=== PATIENT | male | born 1955 | race Caucasian/White ===

== ENCOUNTER 2021-01-11 22:42 | Inpatient (IN) | payer MEDICARE ==
[~2021-01-11] VITALS: Ht 182.9 cm; Wt 95.0 kg
[2021-01-11 22:51] LABS: PCO2 Arterial 97.8 mmHg (35-45); PO2 Arterial 247 mmHg (80-100); pH Blood Arterial 7.25 (7.35-7.45)
[2021-01-11 23:00] LABS: BASOPHILS ABSOLUTE AUTO 0.04 K/mm3 (0.00-0.23); BASOPHILS PERCENT AUTO 0 % (0-2); EOSINOPHILS ABSOLUTE AUTO 0.01 K/mm3 (0.00-0.68); EOSINOPHILS PERCENT AUTO 0 % (0-6); Hematocrit 45.1 % (37.0-53.0); Hemoglobin 12.8 g/dL (13.5-17.5); IMMATURE GRAN ABSOLUTE AUTO 0.19 K/mm3 (0.00-0.10); IMMATURE GRAN PERCENT AUTO 1 % (0-1); LYMPHOCYTES PERCENT AUTO 3 % (21-46); MONOCYTES ABSOLUTE AUTO 0.57 K/mm3 (0.16-1.47); MONOCYTES PERCENT AUTO 3 % (4-13); Mean Corpuscular HGB 29.4 pg (26.0-34.0); Mean Corpuscular HGB Conc 28.4 g/dL (31.5-36.5); Mean Corpuscular Volume 103 fL (80-100); Mean Platelet Volume 10.5 fL (9.1-12.4); NEUTROPHILS PERCENT AUTO 93 % (41-73); Platelet Count 245 K/mm3 (150-400); RDW Coefficient Variation 12.5 % (11.7-14.2); RDW Standard Deviation 48.2 fL (35.1-46.3); Red Blood Cell Count 4.36 M/mm3 (4.30-5.90); White Blood Cell Count 18.71 K/mm3 (4.00-11.30)
[2021-01-11] MEDS ORDERED: Ventolin/Prove6.7 GM INH (23:14)
[2021-01-11] MEDS ORDERED: GABA300 PO ×2 (23:15→23:16)
[2021-01-11] MEDS ORDERED: LEVETIRACETAM1000 M1 PO (23:16)
[2021-01-11] MEDS ORDERED: METF500 PO (23:17)
[2021-01-11] MEDS ORDERED: CARV3.125 PO (23:18)
[2021-01-11] MEDS ORDERED: CLOP75 PO (23:18)
[2021-01-11] MEDS ORDERED: ATOR80 PO (23:18)
[2021-01-11] MEDS ORDERED: BUPR150ER PO (23:18)
[2021-01-11] MEDS ORDERED: DULO60 PO (23:20)
[2021-01-11 23:35] LABS: Albumin, Blood 1.8 g/dL (3.4-5.0); Albumin/Globulin Ratio 0.3 (0.8-1.8); Bilirubin, Total 0.3 mg/dL (0.1-1.0); Bun/Creatinine Ratio 27.6 (12.0-20.0); Calcium, Blood 9.6 mg/dL (8.5-10.1); Creatinine, Blood 1.56 mg/dL (0.60-1.20); Globulin, Blood 5.6 g/dL (2.2-4.0); Potassium, Blood 5.8 mmol/L (3.5-5.5); Total Protein, Blood 7.4 g/dL (6.4-8.2); Troponin I 0.059 ng/mL (0.000-0.040)
[2021-01-12 02:32] LABS: Source, Urine Catheter
[2021-01-12 02:36] LABS: Bilirubin, Urine Neg (Neg); Blood, Urine 3+ (Neg); Glucose Qualitative, Urine 4+ (Neg); Ketones, Urine Neg (Neg); Leukocyte Esterase, Urine Neg (Neg); Nitrite, Urine Neg (Neg); Protein, Urine 3+ (Neg); Urobilinogen, Urine NORM (Normal)
--- NOTE | 2021-01-12 02:41 | NUR ---
ASSUMED CARE NOTE: ASSUMED CARE OF PT AT 1900, RECEVIED REPORT FROM GUILLERMINA MARTE. PT IS ALERT AND ORIENTED TO SELF, FOLLOWING COMMANDS. PT IS UNABLE TO RECALL RECENT/REMOTE EVENTS. PT IS CONFUSED, UNABLE TO RESPOND QUESTIONS APPROPRIATLY. BECOMES ANXIOUS AND AGITATED WHEN ASKED QUESTIONS AND STS " WHY ARE YOU TRYING TO CONFUSE ME" UNABLE TO OBTAIN MEDICAL/MEDICATION HISTORY. WILL ATTEMPT TO REACH CAREGIVER BRIJESH TO OBTAIN MED REC/ Hx FROM HER. PT IS ON BIPAP WITH SETTINGS AT 14/8, FiO2 30% SPO2 AT 97% PT IS IN SINUS TACH WITH HR IN THE 120'S. PT STS "NO" TO PAIN. PT C/O NOT BEING ABLE TO URINATE. BLADDER SCAN READ 565ML, 16F WILSON PLACED, UA SENT TO LAB. WILL CONTINUE TO MONITOR PT
[2021-01-12 02:43] LABS: Appearance, Urine Hazy (Clear); Color, Urine Yellow (P-Yellow)
[2021-01-12 02:44] LABS: Bacteria Rare /hpf; Red Blood Cells, Urine 0-2 /hpf (0-2); Squamous Epithelial Cells Few /hpf (Few); White Blood Cells, Urine Rare /hpf (0-5)
[2021-01-12 02:45] LABS: Amorphous Heavy (0-Heavy)
--- NOTE | 2021-01-12 03:01 | NUR ---
PT BECOMING VERY AGITATED, UNABLE TO UNDERSTAND DIRECTIONS. PT ATTEMPTING TO THROW CALL LIGHT AROUND. PT STS " I KNOW WHAT YOU ARE TRYING TO DO, KILL ME, I WANT TO WALK OUT" CALLED , ORDERS FOR HALDOL GIVEN
--- NOTE | 2021-01-12 03:42 | NUR ---
PT IS MORE CONFUSED, TAKING OFF BIPAP MASK, ATTEMPTING TO GET OUT OF BED. CALLED MAYA, PT ON PRECEDEX, BILAT SWR IN PLACE.
[2021-01-12 05:43] LABS: PCO2 Arterial 62.8 mmHg (35-45); PO2 Arterial 87.3 mmHg (80-100); pH Blood Arterial 7.43 (7.35-7.45)
--- NOTE | 2021-01-12 06:17 | NUR ---
SHIFT SUMMARY: SEE PREVIOUS NOTES. PT CONTINUES TO BE CONFUSED/AGITATED, BECOMES DEFENSIVE WHEN ASK QUESTIONS REGARDING ORIENTATION. REFUSES TO PARTICIPATE IN NEURO ASSESSMENT. PT IS ON PRECEDEX AT 0.7MCG/KG/HR. PT IN SINUS TACH WITH HR IN THE 100-120'S, SBP 150'S. PT IS ON BIPAP WITH SETTINGS AT 14/8, FiO2 AT 30%, SPO2 ABOVE 90% PT RR FROM 20-40 BPM, MODERATE WORK OF BREATHING NOTED. RESTRAINTS APPLIED DUE TO PT CONTINUING TO TAKE OFF BIPAP MASK. PT REACHING FOR LINES/TUBES, ATTEMPTING TO GET OUT OF BED. PT WILL OPEN MOUTH WIDE ENOUGH TO REMOVE MASK, NEEDS TO BE REDIRECTED OFTEN. WILSON DRAINING TO GRAVITY, BED AT LOWEST LEVEL. WILL CONTINUE TO MONITOR PT UNTIL REPORT IS GIVEN TO ONCOMING SHIFT.
[2021-01-12 07:05] LABS: BASOPHILS ABSOLUTE AUTO 0.01 K/mm3 (0.00-0.23); BASOPHILS PERCENT AUTO 0 % (0-2); EOSINOPHILS PERCENT AUTO 0 % (0-6); Hematocrit 37.8 % (37.0-53.0); Hemoglobin 11.2 g/dL (13.5-17.5); IMMATURE GRAN ABSOLUTE AUTO 0.12 K/mm3 (0.00-0.10); IMMATURE GRAN PERCENT AUTO 1 % (0-1); LYMPHOCYTES ABSOLUTE AUTO 0.53 K/mm3 (0.84-5.20); LYMPHOCYTES PERCENT AUTO 4 % (21-46); MONOCYTES ABSOLUTE AUTO 0.17 K/mm3 (0.16-1.47); MONOCYTES PERCENT AUTO 1 % (4-13); Mean Corpuscular HGB 29.3 pg (26.0-34.0); Mean Corpuscular HGB Conc 29.6 g/dL (31.5-36.5); Mean Corpuscular Volume 99 fL (80-100); Mean Platelet Volume 10.2 fL (9.1-12.4); NEUTROPHILS PERCENT AUTO 95 % (41-73); Platelet Count 229 K/mm3 (150-400); RDW Coefficient Variation 12.4 % (11.7-14.2); RDW Standard Deviation 45.4 fL (35.1-46.3); Red Blood Cell Count 3.82 M/mm3 (4.30-5.90); White Blood Cell Count 15.23 K/mm3 (4.00-11.30)
[2021-01-12 07:32] LABS: Albumin/Globulin Ratio 0.4 (0.8-1.8); Bilirubin, Total 0.3 mg/dL (0.1-1.0); Bun/Creatinine Ratio 30.9 (12.0-20.0); Calcium, Blood 9.5 mg/dL (8.5-10.1); Creatinine, Blood 1.49 mg/dL (0.60-1.20); Globulin, Blood 4.6 g/dL (2.2-4.0); Potassium, Blood 4.5 mmol/L (3.5-5.5); Total Protein, Blood 6.6 g/dL (6.4-8.2); Troponin I 0.085 ng/mL (0.000-0.040)
--- NOTE | 2021-01-12 09:24 | NUR ---
Echocardiogram using 0.60ml of Definity contrast performed by Eve Shafer under my supervision.
--- NOTE | 2021-01-12 09:45 | NUR ---
PT HAS BEEN AGITATED THIS AM. GOES FROM CALM TO AGITATED QUICKLY. ON PRECEDEX 0.7MCG/KG/MIN. HAD TO PLACE IN 4 POINT RESTRAINTS THIS AM. HE WILL KICK AT STAFF AND DIFFICULT TO REDIRECT. ORIENTED TO SELF AND HOSPITAL. PT WILL RIP BIPAP MASK OFF DESPITE BEING IN SOFT WRIST RESTRAINTS. PT'S NOSE AND MOUTH TURN PURPLE QUICKLY. CALLED DR. DRUMMOND TO LET HIM KNOW TROPONIN WENT UP, HELD PO MEDS DUE TO RESP DISTRESS, AGITATION LEVEL, BNP 753 AND NOT SURE IF HE RECEIVED LASIX. HE IS GOING TO REVIEW THE CHART. OK'D TO GO UP TO 1.4MCG/KG/MIN OF PRECEDEX.
--- NOTE | 2021-01-12 10:30 | NUR ---
PT CONTINUES TO RIP BIPAP MASK OFF, EVEN WITH PRECEDEX AT 1.4MCG/KG/MIN AND SOFT WRIST RESTRAINTS. HAD CONVERSATION WITH PT ABOUT HIS WISHES FOR INTUBATION AND CPR. PT STATES HE DOES NOT WANT ANY OF THAT. HIS HYDRAULIC REPAIRER ANASTACIA CHEUNG CALLED AND STATES THAT HE HAS BEEN HAVING DIFFICULTY GETTING O2 AND INHALERS AT HOME. 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 THEY HAD BEEN DISCUSSING HOSPICE CARE AT THE END OF DECEMBER. GOT PALLIATIVE CARE CONSULT AND LEFT MESSAGE FOR [employer] THAT IS ON HIS CASE. CALLED DR. DRUMMOND AND LET HIM KNOW ALL OF THIS. DR. DRUMMOND WANTS TO KEEP TREATING HIM FOR HIS PNA AND DISCUSS HOSPICE LATER. PALLIATIVE CARE RN IS GOING TO REACH NEXT OF KIN. WILL TRY HALDOL IN CONJUNCTION WITH PRECEDEX.
--- NOTE | 2021-01-12 11:54 | NUR ---
Next of Kin Brother Dom [phone] Proxy Medical decision maker Sister Maria E [phone] Both supportive of pt's stated wishes for DNR Urgent referral received from ICU r/t pt's altered respiratory and mental status, as well as assistance with locating medical desion-makers. Pt is currently on bipap and is not tolerating it well, and continues to indicate he wants the bipap mask removed. However, it's likely pt's status would quickly worsen, likely resulting in either intubation or . Pt has continued to indicate he does not want to be intubated. I was able to track down pt's brother Dom and sisters Maria E and Karma Esocto, as well as speak to all 3 of them. Dom lives locally, as a roommate to pt. Maria E and Karma live in [place]. They are all in agreement with honoring pt's wishes of DNR and no intubation. Received V.O. from Dr. Whalen to change pt's code status to DNR. Per pt's family members, pt has been in discussion with PCP about moving to hospice care, as he has severe COPD and is unable to obtain relief from air hunger. He is using his inhalers so frequently when filled that he runs out at least 2 weeks before next fill is due. His oxygen concentrator is not working properly, and his brother states he owes so much money to [facility], they will no longer assist pt with oxygen at this time. Pt's sisters have decided that one of them will be driving to [place] to see pt, and they are aware of his current prognosis. Dr. Whalen states he will be rounding on the patient shortly, and states he has increased precedex, and will decide after seeing pt if other medications would be appropriate. He does not wish to discuss hospice at this time, as his goal is to focus on the pneumonia, and we can look into advanced care planning once pt's overall prognosis becomes clearer with treatment.
[2021-01-12 15:49] LABS: Troponin I 0.079 ng/mL (0.000-0.040)
--- NOTE | 2021-01-12 19:16 | NUR ---
SUMMARY PT WAS ON BIPAP ALL DAY UNTIL 1800. WAS ABLE TO TAKE A BREAK ON 6L HFNC. ABLE TO SPEAK SHORT ONE WORD RESPONSES AND STATES HE WILL TRY TO BE CALM. HAS BEEN ON PRECEDEX 1.4MCG/KG/MIN TO KEEP CALM ENOUGH FOR BIPAP. THIS AM HE COULD NOT TOLERATE BEING OFF BIPAP FOR EVEN A COUPLE MINUTES BEFORE HIS NOSE AND MOUTH TURNED PURPLE. THIS EVENING HE WAS ABLE TO TAKE A BREAK WITHOUT NOSE OR LIPS TURNING PURPLE. PT HAS EXPRESSED THAT HE DOES NOT WANT TO BE INTUBATED OR HAVE CPR SEVERAL TIMES TODAY. HE HAS ALSO STATED THAT HE DOES NOT WANT TO STRUGGLE OR BE IN ANY PAIN. ELECTRICAL ESTIMATOR CALLED TODAY AND SAID THAT PT HAS BEEN THINKING ABOUT GOING ON HOSPICE. NOTIFIED DR. DRUMMOND WHO CAME IN TO SEE PT A COUPLE TIMES TODAY. FOR NOW WE ARE TREATING HIS PNA AND WILL ADDRESS HOSPICE LATER. PT IS ORIENTED TO SELF AND HOSPITAL. SOMETIMES CONVERSATION DOES NOT MAKE SENSE THEN OTHER TIMES PT IS LUCCID. KEPT PT IN RESTRAINTS TODAY D/T HIM PULLING AT ALL LINES. BROTHER CAME IN TO SEE HIM TODAY AND WAS UPDATED. A SISTER FROM [place] WILL BE HERE TOMORROW. REPORT GIVEN TO TIERA MARTE.
--- NOTE | 2021-01-12 21:09 | NUR ---
SHIFT ASSESSMENT ASSUMED CARE OF PT @ 1900, REPORT RECEIVED FROM ROSANNA ROBINS. ALERT TO PERSON AND PLACE, CONFUSED WITH OTHER QUESTIONING. PRECEDEX GTT @ 1.4MCG/KG. UPON INITIAL INTRODUCTION PT WAS ON 6LPM O2 VIA NC c SATS >90% BUT RR WAS 30+ WITH OPEN MOUTH BREATHING. PT SPEAKING IN SHORT SENTENCES, BUT BECOMES DYSPNEIC RATHER QUICKLY, PLACED BACK ON BIPAP @ 14/12-35% c SATS AROUND 90% PER PT REQUEST. PT VERY ANXIOUS AND UNCOMFORTABLE, BECOMING AGITATED. SPOKE WITH MICHELLE, ORDERS FOR DIFFERENT PRN MEDS PLACED AND GIVEN. PT RESPONDED WELL TO ATIVAN AND MORPHINE, MUCH CALMER NOW, TOLERATING BIPAP WELL c O2 SAT AROUND 92-93% c RR OF 25. WILL CONTINUE TO MONITOR.
--- NOTE | 2021-01-12 21:45 | NUR ---
REPORT GIVEN TO ROSANNA HIGGINS TO ASSUME CARE OF PT.
[2021-01-13 03:49] LABS: Bun/Creatinine Ratio 31.7 (12.0-20.0); Calcium, Blood 9.2 mg/dL (8.5-10.1); Creatinine, Blood 1.83 mg/dL (0.60-1.20); Potassium, Blood 4.7 mmol/L (3.5-5.5)
--- NOTE | 2021-01-13 04:06 | NUR ---
UPDATE: PT IS AWAKE, TAKING BIPAP MASK OFF. STS " I AM VERY CONFUSED, WHERE IS MEJIA?" PT IS MOVING AROUND IN BED, RR IN THE HIGH 30'S. PRECEDEX TITRATED.
--- NOTE | 2021-01-13 06:06 | NUR ---
SHIFT SUMMARY: SEE PREVIOUS NOTES. PT CONTINUES TO BE ON PRECEDEX AT 1MCG/KG/HR. PT WAS GIVEN MORPHINE AND ATIVAN EARLY IN THE SHIFT, PT BP SOFT, HOWEVER MAP MAINTAINED ABOVE 65. PREXCEDEX TITRATED DOWN TO 0.2MCG/KG/HR DURINING SHIFT, HOWEVER PT AWAKEND AGITATED AND CONTINUED TO TAKE OFF BIPAP MASK AND PULL ON IV LINES AND CORDS. PT IN BILAT SWR. WILSON PATNET DRAINING TO GRAVITY.
--- NOTE | 2021-01-13 06:36 | NUR ---
PT HAS HAD A COUPLE RUN OF VTACH, LAST ONE WAS THE LONGEST. 0631, APPROX 18 BEATS, SEE CHART OF RYTHYM STRIP. PT IS NOW IN NSR WITH HR IN THE 60'S.
--- NOTE | 2021-01-13 11:11 | NUR ---
AM NOTE... ASSUMED CARE OF PT AT 0715. PT IS A&Ox4 AT THIS TIME, TELLING THIS RN HE IS IN [place], HIS NAME AND THE YEAR. PT IS ON BIPAP AT 14/8 AND 35% WITH O2 SATS >90%. PT IS IN SR TO SINUS TACH 70'S-100'S. BP HAS BEEN STABLE. L/S COARSE T/O DIM IN THE BASES, PT WAS ABLE TO TOLERATE BEING OFF THE BIPAP ON 6L NC FOR APROX 10 MINS FOR ORAL CARE. PT WAS ABLE TO SAFELY DRINK SOME WATER. PT WAS COMPLIANT WITH CARE AND KEEPING THE BIPAP MASK ON SO HIS RESTRAINTS WERE REMOVED AT 0800. WILSON IS PATENT AND DRAINING CLEAR YELLOW URINE TO GRAVITY. BT PRESENT AND HYPOACTIVE ABD IS SOFT AND NONTENDER TO PALP. PRECEDEX WAS AT 0.8MCG/KG/HR, THIS WAS TITRATED DOWN TO 0.6MCG/KG/HR. CALL LIGHT IN REACH, BED ALARM IS ON WILL CONTINUE TO MONITOR.
--- NOTE | 2021-01-13 18:23 | NUR ---
SHIFT SUMMARY.... NO ACUTE NEGATIVE CHANGES NOTED THIS SHIFT. PT CONTINUES TO BE A&Ox4, PRECEDEX HAS BEEN TITRATED OFF AT THIS TIME. PT CONTINUES TO BE CALM AND COOPERATIVE AND TOLERATING THE BIPAP AT THIS TIME. BIPAP SETTINGS ARE CURRENTLY 14/8 AND 40% WITH O2 SATS >90%. PT CONTINUES TO BE IN SR/ST W/BBB AND OCC PVCs. PT'S SISTER WAS AT THE BEDSIDE FOR VISITING HOURS. PT HAS BEEN ABLE TO TOLERATE SMALL SIPS OF WATER DURING ORAL CARE BREAKS OFF THE BIPAP. PT'S WILSON IS PATENT AND DRAINING CLEAR YELLOW URINE TO GRAVITY. PT DID NOT HAVE A BM THIS SHIFT. CALL LIGHT IN REACH WILL CONTINUE TO MONITOR UNTIL REPORT IS GIVEN TO ONCOMING RN.
--- NOTE | 2021-01-13 22:21 | NUR ---
ASSUMED CARE AT 1900 PT LAYING IN BED WITH BIPAP SETTINGS 14/8, FIO2 40%; PT TRIALLED OFF OF BIPAP TO NC 7L, TITRATION UP TO 10L HIGH FLOW NC AND SPO2 >90%; DURING EXERTION OF PT REPOSITIONING IN BED, SPO2 DECLINES AND BIPAP PLACED BACK ON PT WITH SETTINGS 16/8, FIO2 60%, TITATED NOW TO FIO2 45%. PT WAS ABLE TO TOLERATE BEING OFF OF BIPAP FOR 20MIN. PT IS ALERT/ORIENTED TO LOCATION AND SITUATION BUT NOT MONTH OR YEAR, IS ABLE TO MAKE HIS NEEDS KNOWN, AND IS CALM AND COOPERATIVE WITH CARE. HR 80-105. SBP 130-150. AFIBRILE. PT ABLE TO TOLERATE SIPS OF WATER AND TAKING PO MEDS WITHOUT SIGNS OF ASPIRATION. WILSON PATENT AND DRAINING TO GRAVITY. SEE SHIFT ASSESSMENT FOR FULL ASSESSMENT.
[2021-01-14 05:16] LABS: Anion Gap 4 mmol/L (6-16); Blood Urea Nitrogen 64 mg/dL (8-24); Bun/Creatinine Ratio 33.9 (12.0-20.0); CO2, Blood 38 mmol/L (21-32); Chloride, Blood 97 mmol/L (98-108); Creatinine, Blood 1.89 mg/dL (0.60-1.20); Glomerular Filtration Rate 38 (60-); Glucose, Blood 158 mg/dL (70-99); Potassium, Blood 4.8 mmol/L (3.5-5.5); Sodium, Blood 139 mmol/L (136-145)
[2021-01-14 05:20] LABS: Vancomycin, Trough 41.5 ug/mL (5.0-10.0)
--- NOTE | 2021-01-14 05:24 | NUR ---
UPDATE PRECEDEX GTT STARTED AGAIN AT 0.2MCG/KG/HR DUE TO INCREASE IN ANXIOUSNESS, PT STATING THAT HE CANNOT TAKE A FULL BREATH, SPO2 >90% AND BIPAP NOT ALARMING. PRN HALDOL GIVEN EARLIER AND PT CONT TO BE UNEASY AND NOW STATING THAT HE IS "DYING" AND IS FIDGETING WITH BIPAP MASK. WILL CONT TO MONITOR.
--- NOTE | 2021-01-14 07:09 | NUR ---
END OF SHIFT SUMMARY PT IS ALERT/ORIENTED AND ABLE TO MAKE HIS NEEDS KNOWN, AN INCREASE IN RESTLESSNESS AND ANXIETY OCCURED T/O SHIFT, SEE PREVIOUS NURSE NOTE, PRECEDEX INFUSING AT 0.4MCG/KG/HR NOW. BIPAP SETTINGS AT 14/8, FIO2 45%, PT ABLE TO TOLERATE SMALL BREAKS FOR SIPS OF WATER AND ORAL CARE BEFORE SPO2 DECLINES TO LOW 80'S. AFIBRILE. HR 80-115. SBP 125-150. WILSON IN PLACE AND DRAINING TO GRAVITY. PT TOLERATES SIPS OF WATER WELL WITHOUT SIGNS OF ASPIRATION. REPORT GIVEN TO AM RN.
--- NOTE | 2021-01-14 07:28 | NUR ---
PT AWAKENS TO VOICE AND IS A&O X4. APPEARS VERY WITHDRAWN AND AFFECT FLAT. PT REFUSING AM CARE AT THIS TIME AND JUST "WANTS TO SLEEP." CONTINUES ON INSULIN DRIP @ 1 UNIT/HR-WITH HOURLY CBG. WILL ADDRESS BEGINING PT HOME REGIME WHEN [facility] MD COMES TO EVALUATE PT.
--- NOTE | 2021-01-14 08:00 | NUR ---
PT A&0X4. NO NOTED ANXIETY WITH PRECEDEX @ 0.4 MCG/KG/MIN.DENIES PAIN AT THIS TIME. PT PLACED ON 9 LITERS HIGH FLOW 02 AND OOB TO CHAIR USING CEILING LIFT AFTER SUBSTANCE ABUSE TECHNICIAN'S DID AM CARE AND BATHED PT. PT TOLERATED VERY WELL. ECG CONTINUES ST WITH BBB AND PVC'S. LUNGS DIMINISHED AND TIGHT THROUGH OUT. PT UTILIZES PURSED LIP BREATHING. OCCASIONAL, MOIST, NONPRODUCTIVE COUGH. PT AWARE THAT SPUTUM SPECIMEN NEEDED AND SPECIMEN CUP SET WITIN PT REACH. PT ABLE TO SWALLOW ROUTINE AM MEDS WITH SIPS OF WATER WITHOUT SIGNS OF ASPIRATION. TOLERATING CLEAR LIQUID DIET WELL. ORAL MUCOSA AND LIPS VERY DRY. PT ABLE TO BRUSH HIS OWN TEETH WHEN PROVIDED WITH THE SUPPLIES-ALSO, APPLIED CHAPSTICK TO LIPS. WILSON TO BSD WITH SMALL AMOUNT OF YELLOW URINE WITH SEDIMENT NOTED. WILL ENCOURAGE COUGHING AND DEEP BREATHING AND OOB TO CHAIR TOLERATED.
--- NOTE | 2021-01-14 10:00 | NUR ---
FOUND PT OUT OF CHAIR. HE DID NOT CALL FOR ASSISTANCE GETTING OUT OF THE RECLINER. PT CONFUSED AND AGITATED. DIFFICULT TO RE-DIRECT AND GET PT BACK TO CHAIR. WITH LOTS OF ENCOUGAGEMENT, PT ASSISTED BACK TO THE CHAIR, THEN USED CEILING LIFT TO GET PT BACK TO BED. TITRATED PRECEDEX UP TO 0.7 MCG/KG/MIN IN ORDER FOR PT TO TOLERATE BIPAP. PT REPORTS GENERALIZED PAIN AND SOB-MED WITH MORPHINE SULFATE 4 MG IVP X 1 SEE EMAR. PT POSITONED TO COMFORT ON LEFT SIDE WITH HOB 30% . MAINTAINS SATS>90% ON FIO2 45%
--- NOTE | 2021-01-14 17:45 | NUR ---
P HAS BEEN SITTING UP IN THE CHAIR FOR SEVERAL HOURS THIS EVENING. PT IS MORE ALERT AND ORIENTED-ABLE TO HAVE SOMEWHAT NORMAL CONVERSATION WITH HIS SISTER. PRECEDEX @ 0.4 MCG/KG/MIN. SATS>90% ON 9 LITERS JOSEPH FLOW/HUMIDIFIED 02. LUNGS REMAIN TIGHT AND DIMINISHED. STILL UNABLE TO OBTAIN SPUTUM SPECIMEN. PT TOLERATING CLEAR LIQUIDS DURING BREAKS FROM BIPAP WELL. WILL USE CEILING LIFT TO ASSIST PT BACK TO BED AFTER VISITING HOURS, AND MOST LIKELY PLACE BIPAP AT THAT TIME.
--- NOTE | 2021-01-14 18:18 | NUR ---
ASSISTED PT BACK TO BED USING WALKER AND 2 PERSON MODERATE ASSISTANCE. PT TOLERATED WELL-MAINTAINED SATS>90% ON 9 LITERS HIGH FLOW O2. PT STATES THAT HE FEELS VERY TIRED. BIPAP MASK PLACED. CALL LIGHT WITHIN PT REACH.
[2021-01-14 21:30] LABS: Vancomycin, Random 29.2 ug/mL
--- NOTE | 2021-01-14 22:35 | NUR ---
ASSUMED CARE AT 1900 PT IS ALERT/ORIENTED, ABLE TO MAKE HIS NEEDS KNOWN, AND ANSWERS QUESTIONS APPROPIATLY. PT IS VERY SOMNOLENT DURING ASSESSMENT AND SLEEPING WHEN NOT STIMULATED; PRECEDEX AT 0.4MCG/KG/HR AND THEN TITRATED DOWN TO SB. TRIAL OFF OF BIPAP TO HIGH FLOW NC AT 9L, PT TOLERATING WELL, TITRATED O2 TO 7L, SPO2 >95% NOW. AFIBRILE. HR 70-90'S. SBP 100-125. WILSON PATENT AND DRAINING TO GRAVITY. PT TOLERATING DRINKING WATER WITHOUT SIGNS OF ASPIRATION. SEE SHIFT ASSESSMENT FOR FULL ASSESSMENT.
--- NOTE | 2021-01-15 05:57 | NUR ---
END OF SHIFT SUMMARY PT SLEPT MOST OF THE NIGHT ON 7L HIGH FLOW NC. ONCE MORE AWAKE AT 0400, BIPAP NEEDED WITH SETTINGS 14/8, FIO2 55%. PT IS ALERT/ORIENTED AND ABLE TO MAKE HER NEEDS KNOWN. PRECEDEX ON SB SINCE 1930. PRN MORPHINE GIVEN ONCE FOR 10/10 PAIN AND NOW PAIN 2/10. AFIBRILE. HR 80-90. SBP 100-140. WILSON PATENT AND DRAINING TO GRAVITY. WILL REPORT TO AM RN WHEN AVAILABLE.
--- NOTE | 2021-01-15 07:35 | NUR ---
PT SLEEPING ON BIPAP AND SETTINGS OF 14/8 AT 55% W/O RESP DISTRESS. VSS. SATS 95, NS TKO, U.O. YELLOW PER KATIE. PT IS NSR. AM LABS ORDERED AND WILL FOLLOW.
--- NOTE | 2021-01-15 08:27 | NUR ---
PT REQUESTING BIPAP OFF AND SIP OF WATER. SATS DOWN TO 85 AND THEN UP O2 TITRATED UP TO 11 L. PT IS NOT IN RESP DISTRESS BUT HR IS NOTED TO BE UP FROM 70 TO MID 90 RANGE OFF BIPAP AND AWAKE. WILL ENCOURAGE SIPS OF LIQUID AND F/U ON RESP STATUS.
[2021-01-15 10:23] LABS: Bun/Creatinine Ratio 30.8 (12.0-20.0); Calcium, Blood 8.4 mg/dL (8.5-10.1); Creatinine, Blood 2.79 mg/dL (0.60-1.20); Potassium, Blood 5.4 mmol/L (3.5-5.5)
--- NOTE | 2021-01-15 12:16 | NUR ---
PT UP TO CHAIR WITH MODERATE ONE PERSON ASSIST. PT IS MOUTH BREATHER AND MAINTAINING ON 9L NC. HR SL ELEVATED AND WILL FOLLOW.
--- NOTE | 2021-01-15 14:14 | NUR ---
PT CONT TO BE COMFORTABLE SETTING UP IN CHAIR. VSS. PT CONT TO TAKE PO AND WILL ADAT TO FULL LIQUID AT THIS TIME. NO RESP DISTRESS WITH ORAL O2 AT 9L.
--- NOTE | 2021-01-15 22:08 | NUR ---
ASSUMED CARE AT 1900 PT IN RECLINER AND REQUESTED TO GO TO BED, PT THAN TRANSFERED TO BED WITH ASSIST FROM THIS RN AND PCT. PT WAS TOLERATING 9L HIGH FLOW NC BUT IS NOW BACK ON BIPAP WITH SETTINGS 14/8, 55% DUE TO DECLINE IN SPO2. PT IS ALERT/ORIENTED AND ABLE TO MAKE HIS NEEDS KNOWN, RIGHT NOW PT IS SOMNOLENT AND MORE WITHDRAWN TODAY. HR 90'S. BP STABLE. AFIBRILE. WILSON PATENT AND DRAINING TO GRAVITY. SEE SHIFT ASSESSMENT FOR FULL ASSESSMENT.
[2021-01-16 03:45] LABS: Bun/Creatinine Ratio 31.6 (12.0-20.0); Calcium, Blood 8.3 mg/dL (8.5-10.1); Creatinine, Blood 3.39 mg/dL (0.60-1.20); Potassium, Blood 5.6 mmol/L (3.5-5.5)
--- NOTE | 2021-01-16 06:26 | NUR ---
END OF SHIFT SUMMARY PT SLEPT MOST OF THE NIGHT UNTIL 0430 ON BIPAP WITH SETTINGS 14/8, FIO2 55%. ONCE AWAKE PT TOLERATED 12L HIGH FLOW NC WITH SPO2 >90%. PT IS ALERT/ORIENTED, ABLE TO MAKE NEEDS KNOWN AND COOPERATIVE WITH CARE. AFEBRILE. HR 80-100. SBP 120-160. WILSON PATENT AND DRAINING TO GRAVITY. WILL REPORT TO AM RN WHEN AVAILABLE.
--- NOTE | 2021-01-16 07:36 | NUR ---
ASSUMED CARE: PT LAYING IN BED, TALKING TO STAFF. 6L O2 VIA NC AT THIS TIME. ALERT AND ORIENTED, NSR ON TELE. NO ACUTE NEEDS OR CONCERNS AT THIS TIME.
--- NOTE | 2021-01-16 10:26 | NUR ---
PT AGITATED, CONFUSED, RESTLESS. PT HAD PULLED OFF O2 AND LINES, RESP HIGH 40'S. SATS DOWN TO 50'S.BIPAP REPLACED, MS 2MG GIVEN FOR AIR HUNGER AND COMFORT. PT TWITCHING BUT CALM NOW W BIPAP MASK 24/06, FIO2 55%, SATS 94%. PRIMARY RN NOTIFIED.
--- NOTE | 2021-01-16 12:44 | NUR ---
PT WANTED TO TAKE OFF MASK AND REPLACE WITH NASAL CANNULA SO HE COULD VISIT WITH HIS FAMILY WHEN THEY COME. ORIENTED PT TO TIME AND ASKED IF HE WOULD KEEP MASK ON UNTIL FAMILY COMES TO VISIT. PT WAS AGREEABLE TO THIS.
--- NOTE | 2021-01-16 14:50 | NUR ---
Summary of multiple conversations with nursing, family, Dr, Pt, NATALI, Jill and two pt visits today. I was contacted by pt's sister with request for me to meet with patient to discuss his current health status and plan for care. She did not feel he understood that he was nearing EOL. When I arrived in the ICU this am to do this, pt was just being put back on the bipap and had been medicated with MS due to hypercapnia, confusion and agitation. I conferenced with nursing, care management and family further. Family meeting planned with both pt's sister, Karma and his brother, Oswaldo, to discuss d/c plan for hospice, which had discussed with pt this am and pt's wishes. When I returned to ICU, pt had bipap on and he was alert, oriented and able to participate in the conversation well. He showed a sense of humor as we spoke. He was able to indicate that he remembered the conversation with his dr this am and that he understood he was nearing EOL with his end stage COPD. He verbalized that he would like to have hospice care when he leaves the hospital. We also discussed comfort care and Drs desire to cont to treat his pneumonia at this time and to try to improve his kidney function. Pt and family agreeable with this plan. Karma had been in touch with pt's friend Edilberto, who states she is agreeable to pt returning to her home where he has been living, and to care for him with Hospice support. They indicate they would like [facility] contacted, which NATALI has done today. FAmily is working on helping pt with some personal and financial matters to support his care at home. Pt and family would like to complete a durable Power of Att and other documents during periods of pt's clarity. He did not have his photo ID with him but was able to tell sister where to find it. I arranged for our notary/ssn/ssbn assistant navigator to meet with them tomorrow at 2pm to work on this. Sheet Tailer also introduced herself to family and pt today after this was arranged. Pt denies pain. He acknowledges he is suffering with air hunger & dyspnea. I was able to head wrestling coach him in pursed lip breathing while on the nasal canuala and he was able to get his saturations back up to 88% for a bit. This was my second visit and he again showed a sense of humor despite severe dyspnea. He was enjoying his siblings visiting. See CM notes for d/c planning details. I spoke to re: plans & Roxanol for air hunger and he stated he would order that. Pt and family expressed great appreciation for all of staff's care and help with planning for pt's care. Discussed with and with pt/family transition to comfort care if he were to decline in resp status further or with kidney function. Currently plan is for comfort care per Hospice after d/c.
--- NOTE | 2021-01-16 17:06 | NUR ---
PT CAME OFF BIPAP WHEN FAMILY ARRIVED AT 1400. REPLACED BIPAP NOW DUE TO PT BECOMING MORE TWITCHY AND STARTING TO GET CONFUSED AGAIN. PT'S BROTHER AT BEDSIDE AND AGREEABLE TO THIS PLAN. PT REMAINS ON 24/06 AND 55% FIO2.
--- NOTE | 2021-01-16 18:31 | NUR ---
SHIFT SUMMARY: PT RESTING IN BED WITH BIPAP ON, SETTINGS 14/8 AND 55% FIO2. PT HAS BEEN ALTERNATING BETWEEN NC AND BIPAP T/O DAY DEPENDING ON SYMPTOMS. PT WILL BECOME CONFUSED AND LETHARGIC WITH MUSCLE TWITCHES IF OFF BIPAP FOR TOO LONG. LONGEST BREAK WAS FROM POTATO SORTER TO 10AM. PT'S BROTHER AND SISTER CAME TO SPEAK WITH PALLIATIVE CARE NURSE TO MAKE PLANS FOR HOME WITH HOSPICE AND TRYING TO MAKE ARRANGEMENTS FOR DISCHARGE DUE TO HOME SITUATION POSSIBLY NOT WORKING ANYMORE. CARE MANAGEMENT ASSISTING WITH DC PLANNING.
--- NOTE | 2021-01-16 19:20 | NUR ---
ASSUMED CARE OF PT, BEDSIDE REPORT RECEIVED. PT IS RESTING QUIETLY AND APPEARS TO BE SLEEPING WITH BIPAP IN PLACE, CURRENT RATE 14-15/MIN, SATS MID 90S, EXPRESSION WITHOUT GRIMACING OR AGITATION NOTED.
--- NOTE | 2021-01-16 22:31 | NUR ---
PT WITH FREQUENT BIPAP ALARM RELATED TO MASK LEAK FOR OPENING MOUTH AROUND MASK, BIPAP TO STANDBY AT THIS TIME AND PT TO OXYGEN VIA HIGH FLOW NASAL CANNULA AT 11 L/MIN, WILL MONITOR.
[2021-01-17 04:35] LABS: Anion Gap 3 mmol/L (6-16); Blood Urea Nitrogen 100 mg/dL (8-24); Bun/Creatinine Ratio 31.4 (12.0-20.0); CO2, Blood 38 mmol/L (21-32); Calcium, Blood 8.4 mg/dL (8.5-10.1); Chloride, Blood 97 mmol/L (98-108); Creatinine, Blood 3.18 mg/dL (0.60-1.20); Glomerular Filtration Rate 21 (60-); Glucose, Blood 164 mg/dL (70-99); Potassium, Blood 5.4 mmol/L (3.5-5.5); Sodium, Blood 138 mmol/L (136-145); Vancomycin, Random 34.5 ug/mL
--- NOTE | 2021-01-17 06:49 | NUR ---
PT CONTINUES TO MAINTAIN MILD CONFUSION, PLEASANT AND COOPERATIVE WITH CARE, SATS MAINTAINING FIO2 ON BIPAP DID HAVE TO BE TITRATED UP TO 60% THIS SHIFT FOR PT REMOVAL OF HIGH FLOW NASAL CANNULA AND ATTEMPT TO CLIMB OUT OF BED WITH SATS DECREASING TO 60S BRIEFLY, RECOVERED WELL WITH APPLICATION OF BIPAP AND ADMINISTRATION OF MORPHINE 2 MG IV. PRESSURES HAVE MAINTAINED STABLE. TOLERATES PO FLUIDS WELL. STATES THAT HE HAS BEEN HAVING PLEASANT DREAMS THROUGHOUT THIS SHIFT
--- NOTE | 2021-01-17 07:59 | NUR ---
Received report from Zaira MARTE. Patient is sleeping in room with BIPAP in place with settings of 14/8 and reduced FiO2 from 60% to 50% ans sats 94%. He awkens to verbal stimuli and falls right back to sleep. He has 20 ga IV to RW and flushed and SL'd. He has 16Fr wadsworth draining to gravity clear yellow urine.
--- NOTE | 2021-01-17 09:38 | NUR ---
Patient awoke and took BIPAP off and place on HF NC at 10L O2 and sats low 90%. He he very confused and is having a hard time understanding where he is and holding on to that. He states eveything is wonderful and beutiful. He tolerated am meds in Grits and is able to feed self sitting up in bed. He has good cough and able to clear brown sputum from airway. He MAEW in bed and is jakub cooperative with care.
--- NOTE | 2021-01-17 11:30 | NUR ---
Patient was resting and was awakened and set up for lunch. He kept falling back to sleep and only ate about 10% of lunch. He is still very confused but very pleasant and happy. VSS, See EMR.
--- NOTE | 2021-01-17 13:30 | NUR ---
Dr Covington by and he is now med no tele. I placed him back on bipap as while resting he desats. We then transferred to [facility] to be able to take to med floor. He has been assigned a room 311 and will call report shortly. Noon CBG 158 and covered 1 unit .
--- NOTE | 2021-01-17 16:08 | NUR ---
TRANSFER/SHIFT SUMMARY PT TRANSFERED FROM ICU AT 1455. AFTER TRANSFER PT O2 SATS WERE AT 72% ON 14L O2 VIA HIGH FLOW NC. O2 INCREASED TO 15L AND WITH REST PT INCREASED TO 80-82%. SPOKE WITH [facility]ORES ICU NURSE WHO STATED PT WAS PREVIOUS SATING IN THE 90S ON 15L VIA HIG FLOW NC. PT PLACED ON BIPAP WITH A 10L BLEED OF O2. SATS INCREASED TO 89-91%. PT REMAINED NON SYMPTOMATIC T/O THE PROCESS. PT CURRENTLY WEARING BIPAP WITH FAMILY IN ROOM AND SATING IN THE LOW 90S. PT CONFUSED, YET COOPERATIVE AND PLEASANT IN ROOM. JOKING AROUND WITH STAFF AND FAMILY. PT ORIENTED TO NEW ROOM WHEN TRANSFERED. BED ALARM IN PLACE. FAMILY WROTE CONTACT NUMBERS ON BOARD. VS REVIEWED & STABLE AT THIS TIME.
--- NOTE | 2021-01-17 16:48 | NUR ---
DESAT TO 80S PT DESAT TO 75% ON 10L O2 BLEED ON BIPAP. PT BIPAP SECURED BETTER TO FACE & O2 INCREASED TO 14L BLEED. PALLIATIVE CARE NURSE CALLED & NOTIFIED OF CHANGE. CEDRIC IN RT NOTIFIED AND CAME TO ASSESS PT. MORPHINE GIVEN TO HELP WITH WORK OF BREATHING. PALLIATIVE CARE RN, GENET SPOKE WITH DR. POLANCO ABOUT POSSIBLE COMFORT CARE ORDERS. PT CHANGED TO PCU STATUS AT THIS TIME. & IV LASIX ORDERED. PT UP TO 91% ON BIPAP WITH A 15L BLEED. RT STILL IN ROOM.
--- NOTE | 2021-01-17 18:35 | NUR ---
UPDATE PT CURRENTLY SATING AT 89-90% ON 15L O2 VIA HIGH FLOW NC. AT 1815 PT STATED HE WAS NO LONGER ABLE TO TOLERATE THE BIPAP, STATING "I CANT BREATH" & "WHY ARE YOU LADIES TORTUREING ME". PT EDUCATED ON THE BIPAP AT THIS TIME. PT WAS SATING AT 90-91% AT THIS TIME, SO PT WAS SWITCHED OVER TO HIGH FLOW NC AT 15L. PT SAT WELL WITH THE NC FOR APPROX 10 MINUTES. PT STARTED PULLING THE NC OFF AND THEN DESATED TO 84%. PT PLACED BACK ONTO BIPAP BLEED WITH 15L AGAIN AND IS CURRENTLY SATTING 87-90% O2. PT IS VERY CONFUSED ABOUT WHY HE MUST WEAR THE MASK AND CANNOT FEED HIMSELF. PT STARTED HALLUCINATING SINCE HE HAS BEEN TRANSFERED TO [facility]. PT STATES HE SEES ANTS ON THE CEILING AND THAT THE ROOM IS SPINNING. THIS IS ONE REASON THE PT STATES HE PULLED THE TUBING FROM THE BIPAP OFF, BECUASE HE NEEDED SOMETHING TO HOLD ON TO. PT REORIENTED WHEN HALLUCINATING, BUT REMAINS VERY CONFUSED. REPORT GIVEN TO ANA OROSCO RN. PROGRAM PARAPROFESSIONAL RT NOTIFIED OF PT O2 NEEDS.
--- NOTE | 2021-01-17 18:42 | NUR ---
Spiritual care note: Advanced Directive completed with pt and family. Abran's sister and brother appear loving and devoted. AD notarized. Copies made and several given to spouse. One copy placed in pt's chart. Both reported hope for more years of quality time. Spouse, Aster was often tearful, but responded well to personnel counselor and comfort. I will remain available.
--- NOTE | 2021-01-17 20:32 | NUR ---
PER PRIMARY RN ANA, PT IS AT THIS TIME TOLERATING 15L HIFLO O2 AT 89-90% WITHOUT THE BIPAP, SPOKE WITH MICHELLE KUMAR, SHE GAVE THE ORDER TO DC THE TRANSFER TO PCU FOR NOW AND CONTINUE TO MONITOR PT.
--- NOTE | 2021-01-17 22:27 | NUR ---
ASSUMPTION OF CARE. GERRI IS ON 15 LITERS BLEED IN WITH BIPAP. HE IS SATING AROUND 88-90% AND OCCATIONALLY DOES DROP PER CONTINUOUS PULSE OX DOWN INTO THE 70'S. THE TUBE TO THE BIPAP CONTINUES TO COME OFF THEREFORE TAPED IT IN PLACE. LUNG SOUNDS ARE VERY TIGHT AND DIMINISHED THROUGHOUT, COUGH IS OCCATIONAL NON-PRODUCTIVE. WAS ABLE TO STATE ALL ORIENTATION QUESTIONS, BUT DOES HAVE PERIODS OF CONFUSION WHEN HE OXYGEN LEVELS DROP. IF HE REMOVED THE BIPAP HE DOES DROP RIGHT AWAY INTO LOW 70'S. DID SWITCH HIM TO A HIGH FLOW CANNULA ON 15 LITERS SO HE CAN EAT AND DRINK SOMETHING. HE SAT UP ON THE SIDE OF BED, LATER NOTICED HE DROPPED DOWN TO 65%, HE HAD HIS TUBE OFF AND HIS FINGER SENSOR WAS IN HIS HAND NOT ON HIS FINGER. PLACED A NEW ON ON HIM AND IT READ 91%. HE HAS BEEN MAINTAINING 88-91% ON THE 15 LITERS. [id number] TO RT WHO AGREED THAT WE WILL CONTINUE TO MONITOR HIM ON THE FLOOR AND IF HE DESATS ON THIS LEVEL THEN HE WILL BE SWITCHED TO ANOTHER FLOOR. MEDS GIVEN. HE IS CURRENTLY SLEEPING. HR REMAINS TACHY IN THE 110'S. CALL LIGHT IS IN REACH.
[2021-01-17] MEDS ORDERED: TRIDERM28.4 GM TOP (23:03)
[2021-01-17] MEDS ORDERED: PRED20 PO (23:05)
--- NOTE | 2021-01-18 00:31 | NUR ---
GERRI HAS BEEN SLEEPING BUT DURING HIS SLEEP HE IS VERY RESTLESS, SWING HIS ARMS, JERKING CONSTANTLY, HITTING SELF IN HEAD, HITTING MASK OFF. WHEN WAKING HIM HE DOES NOT REALIZE HE DOES THIS. REPOSITIONED HIM AND GAVE HIM 4MG OF MORPHINE PER [id number] TO SEE IF IT HELPS WITH SLEEP AND HIS BREATHING TO GET SATS BACK UP WHERE THEY NEED TO BE. WHEN SATS DROP HR INCREASES. WILL CONTINUE TO MONITOR.
--- NOTE | 2021-01-18 05:47 | NUR ---
SHIFT SUMMARY: AOX3, BUT DOES HAVE PERIODS OF CONFUSION WHEN O2 SATS DROP DOWN INTO THE 70'S. START OF SHIFT THERE WERE CONCERNS THAT HE MAY NEED TO GO TO PCU DUE TO HIGH LEVELS OF O2 USE, AND HIS CONFUSION. HE CONTINUED TO UNPLUG HIS BIPAP TUBE CAUSING DESATS DOWN INTO THE 70'S. SOLVED BY TAPING THE TUBE IN PLACE. ALSO REPLACED PULSE OX SENSOR ON FINGER WHICH WAS NOT READING RIGHT. HE WAS ABLE TO HOLD 88-92% AWAKE ON HIGH FLOW CANNULA. LUNGS WERE DIMINISHED WITH SOME WHEEZES IN UPPER LOBES. THERE HAS BEEN ACOUPLE OF TIMES HE REMOVED HIS TUBING AND GOT CONFUSED BUT WAS EASILY REORIENTED. PLACED ON BIPAP WITH 15 LITERS BLEED IN FOR SLEEP AND HE MAINTAINED ABOVE 90% T/O NIGHT. DURING SLEEP HE IS VERY JERKY SWINGING ARMS AND JERKING BODY CONSTANTLY CAUSING HIM TO HOLD HIS BREATH. WAS GIVEN 4MG OF MORPHINE WHICH HELPED TO EASE AND ALLOW HIM TO SLEEP. VS HAVE SHOWED SOME TACHYCARDIA COMPENSATING FOR LOW SATS THEN THEY LEVEL OFF. NO OTHER CHANGES TO NOTE. CALL LIGHT IS IN REACH.
[2021-01-18 05:58] LABS: Hematocrit 42.6 % (37.0-53.0); Hemoglobin 12.5 g/dL (13.5-17.5); Mean Corpuscular HGB 29.7 pg (26.0-34.0); Mean Corpuscular HGB Conc 29.3 g/dL (31.5-36.5); Mean Corpuscular Volume 101 fL (80-100); Mean Platelet Volume 10.5 fL (9.1-12.4); Platelet Count 175 K/mm3 (150-400); RDW Coefficient Variation 12.1 % (11.7-14.2); RDW Standard Deviation 45.1 fL (35.1-46.3); Red Blood Cell Count 4.21 M/mm3 (4.30-5.90); White Blood Cell Count 12.49 K/mm3 (4.00-11.30)
[2021-01-18 06:36] LABS: Alanine Aminotransfer (ALT/SGP 29 U/L (12-78); Albumin, Blood 2.4 g/dL (3.4-5.0); Albumin/Globulin Ratio 0.6 (0.8-1.8); Alk Phos 71 U/L (50-136); Anion Gap 2 mmol/L (6-16); Aspartate Aminotrans (AST/SGOT 15 U/L (12-37); Bilirubin, Total 0.6 mg/dL (0.1-1.0); Blood Urea Nitrogen 85 mg/dL (8-24); Bun/Creatinine Ratio 33.6 (12.0-20.0); CO2, Blood 43 mmol/L (21-32); Calcium, Blood 8.8 mg/dL (8.5-10.1); Chloride, Blood 97 mmol/L (98-108); Creatinine, Blood 2.53 mg/dL (0.60-1.20); Globulin, Blood 4.1 g/dL (2.2-4.0); Glomerular Filtration Rate 27 (60-); Glucose, Blood 186 mg/dL (70-99); Potassium, Blood 5.1 mmol/L (3.5-5.5); Sodium, Blood 142 mmol/L (136-145); Total Protein, Blood 6.5 g/dL (6.4-8.2); Vancomycin, Random 45.6 ug/mL
--- NOTE | 2021-01-18 11:34 | NUR ---
pt awake pulling of oxygen. Pt confussed though he was held in a warehouse last night and could not get out. Can answer some questions mostly babbling. revew of patient with hospitaist and asked to update family. PT sister Maria E states they all had a long conversation last night about his care. She stated the last four years have been awful, He has been in and out the hospital several times and almost . He mendoza sexpressed wanting an end to his life. Review his assessemnt and the physician visit and stay the course. FAmily feels he is declining much quicker and that they will be having to decide again on hospice. They feel comfort care is the best course and matches his wishes. Advised physician and comfort orders placed. Updated animal care giver on issues of hospice in th home that may not be safe and he may need placemnt.
--- NOTE | 2021-01-18 15:34 | NUR ---
Review with family medications and plan of care.
--- NOTE | 2021-01-18 18:09 | NUR ---
SHIFT SUMMARY PT AWAKE AT START OF SHIFT, CONFUSED AND YELLING OUT. PT NOT LEAVING O2 ON, THEREFORE, CONTINOUS BIOX CONSTANTLY ALARMING. PT REFUSING TO KEEP NC ON, RESULTING IN BIOX GOING DOWN INTO MID 70'S. DR POLANCO AND PALLIATIVE CARE HERE TO SEE PT, OBSERVING PT'S CONFUSION AND DISORIENTATION. PT'S FAMILY NOTIFIED FOR PLAN OF CARE. PT NOW TO BE MADE COMFORT CARE. NEW ORDERS PLACED. FAMILY TO RM SOON AFTERWARDS. PT LATER BECOMING AGITATED AND MORE CONFUSED. PT MEDICATED WITH ROXANOL AND ATIVAN PER FAMILY AND PALLIATIVE CARE RECOMMENDATIONS. PT CALMED AND EVENTUALLY WENT TO SLEEP FOR A WHILE. PT WITH HX OF RLS, JERKING IN SLEEP. TREMORS NOTED THIS AM WHEN PT TRYING TO EAT AND DRINK AT BREAKFAST, MAKING A MESS ON HIS GOWN AND LINENS. PT STATED THAT HE DIDN'T MIND THAT HE DUMPED HIS FOOD DOWN HIS SHIRT, AND NOT WANTING ASSIST WITH HIS MEALS. PT TALKED TO HIMSELF AND YELLED OUT OFTEN UNTIL FAMILY CAME TO VISIT. FAMILY REMAINS IN RM. PT CURRENTLY RESTING QUIETLY. CALL LT IN REACH.
--- NOTE | 2021-01-18 19:54 | NUR ---
ASSUMPTION OF CARE. COMFORT CARE. GERRI IS VERY RESTLESS AND HULLUCINATING GRABING THINGS IN THE AIR THAT IS NOT THERE. HE IS JERKING ABOUT EVERY MINUTE OR SO, AND APPEARS TO BE VERY UNCOMFORTABLE. FAMILY IS AT SIDE AND ASK IF WE CAN PLEASE KEEP HIM COMFORTABLE. HAS NOT HAD ANY MEDS SINCE 1400. HE DID AWAKEN FOR SHORT PERIOD OF TIME IN ORDER FOR ME TO GIVE HIS PM MEDS EARLY THAT WAY MAKE SURE HE GETS THEM. HE SWALLOWED THEM WITH SOME PUDDING WITH NO PROBLEM. THEN GAVE HIM SOME ROXINAL TO HELP HIM RELAX. HE IS NOW SETTLING DOWN, O2 IS AT 15L HIGH FLOW IN HIS MOUTH. FAMILY PLANS TO GO HOME FOR THE NIGHT AND WILL BE BACK EARLY IN THE AM. CALL LIGHT IS IN REACH, BED ALARM IS ON.
--- NOTE | 2021-01-18 21:28 | NUR ---
PLACED PATIENT ON BIPAP THAT WAS IN THE ROOM, SET AT 15LITERS BLEED IN SINCE HE IS A MOUTH BREATHER. HE IS TOLERATING IT WELL, APPEARS TO BE COMFORTABLE, CHANGED GOWN AND BEDDING DUE TO DRINK BEING SPILLED EARLIER. EMPTIED CATHETER, REPOSITIONED.
--- NOTE | 2021-01-19 05:33 | NUR ---
SHIFT SUMMARY: COMFORT CARE. FAMILY WENT HOME FOR THE NIGHT. HE WAS VERY RESTLESS AT START OF SHIFT, INVOLUNTARY MOVEMENTS, JERKING. GAVE PM MEDS AND 20MG OF ROXINAL FOR THE NIGHT. ONCE HE SETTLED DOWN, APPLIED BIPAP, CHECKED OXYGEN SATS EVERY ONCE IN AWHILE. HE MAINTAINED 90-92%. SLEPT VERY WELL ALL NIGHT AND IS NOW STARTING TO WAKE UP SOME, MOVING HIS HANDS LIKE HE IS DOING SOMETHING IN HIS SLEEP. TALKING OCCATIONALLY. NO SIGNS OF DISTRESS NOTED. BED ALARM IS ON, AND CALL LIGHT IS IN REACH.
--- NOTE | 2021-01-19 10:58 | NUR ---
Met with pt and family this am. Both sister Karma and Brother Dom are at bedside. Pt states he's feeling "very good" today, and states his breathing is also "very good" today as well. He does report he is "super hungry for some real food" as he is currently on a liquid diet. Received ok from Dr. Covington to advance diet as tolerated, as he is on Comfort Care. Pt's sister Karma states she isn't sure about the discharge plan, I reassured her after review of CM note, the pt will not be returning to previous address, as this is not appropriate for pt's needed level of care.
--- NOTE | 2021-01-19 16:39 | NUR ---
family attending, declined offered pain medication, they are managing o2/nasal canula
--- NOTE | 2021-01-19 17:26 | NUR ---
family has asked to be allowed to accomadate breathing needs by changing 02 sources
--- NOTE | 2021-01-19 17:50 | NUR ---
still trying different combinations of breathing treatments to keep comfortable
--- NOTE | 2021-01-19 18:26 | NUR ---
alert, orintated to self, family and location, family had to work very hard to keep him focused and cooprative, saline locked, 15l vi cpap, bed in low position call light in reach, bsr with noc nurse and pt
--- NOTE | 2021-01-20 06:54 | NUR ---
SHIFT SUMMARY PATIENT ALERT AND ORIENTED TO SELF ONLY. HAD NO COMPLAINTS OF PAIN OR SHORTNESS OF BREATH. WHILE AWAKE PATIENT WOULD OFTEN PULL ON HIS CPAP MASK/TUBE REQUIRING THIS RN TO PROPERLY PLACE IT BACK ON HIM. PATIENT SLEPT WELL OVERNIGHT. IV PATENT AND FLUSHED. BED IN LOWEST POSITION WITH WHEELS LOCKED AND ALARM ON. CALL LIGHT WITHIN REACH. REPORT GIVEN TO ONCOMING RN.
--- NOTE | 2021-01-20 17:53 | NUR ---
Met with pt's brother and sister this am, they report pt doing better without constant biox monitoring. Pt appears relaxed, denies air hunger, anxiety or pain. No new plan in place yet for placement, per sister Karma. No changes to care plan at this time.
--- NOTE | 2021-01-20 19:31 | NUR ---
alert to self, family supplying needs during day, medicated as prescribed no acute changes noted during shift, call light in reach, saline locked, pt removes nc and face mask but puts them back on when reminded, no acute changes noted during shift, bsr shared with noc nurse and pt, remains on isolation for mrsa in sputum
--- NOTE | 2021-01-21 03:54 | NUR ---
SHIFT SUMMARY: 65 Y/O MALE RESTED COMFORTABLY ALL SHIFT; DENIES PAIN OR NAUSEA; COMFORT CARE MEASURES MAINTAINED; BED ALARM APPLIED FOR SAFETY, BED LOW POSITION WITH CALL LIGHT AT SIDE.
--- NOTE | 2021-01-21 18:26 | NUR ---
SHIFT SUMMARY- PT SLEPT MOST OF THIS SHIFT. HE HAD SOME PAIN THIS MORNING AND WAS TREATED PER MAR. HIS DAUGHTER AND SON WERE IN THE ROOM FOR MOST OF THIS SHIFT. HE HAS A WILSON AND IT IS PATIENT AND DRAINING. HE HAS A POOR APPETITE AND DID NOT EAT THIS SHIFT, HE DID DRINK SOME WATER. HIS BED IS IN THE LOW POSITION AND CALL LIGHT LEATHA REACH
--- NOTE | 2021-01-22 05:59 | NUR ---
PT SLEPT THROUGH SHIFT BUT AWAKENS WHEN TALKED TO, DENIED PAIN OR SOB. PT IS ON COMFORT CARE, O2 VIA N/C. WILSON CATH DRAINING SALVADOR URINE.
--- NOTE | 2021-01-22 19:18 | NUR ---
SHIFT SUMMARY- PT IS A/O, PLESANT AND COOPERATIVE. HE REFUSED HIS MEALS TODAY, BUT DRANK THE ENSURE. HE STOOD AND TRANSFERED TO THE BEDSIDE CAMMODE. HE IS REQUESTING TO GO HOME AT THIS POINT, BUT FAMILY HAS SOME CONCERNS ABOUT THE POSSIBILITY OF THIS. HIS BED IS IN THE LOW POSITION AND CALL LIGHT WITHIN REACH.
--- NOTE | 2021-01-23 05:46 | NUR ---
PT IS ALERT, ON COMFORT CARE, ATIVAN TAB GIVEN THIS SHIFT TO AID IN SLEEP PT WAS ANXIOUS AT ONE POINT THIS EVENING. WILSON CATH DRAINING TEA COLORED URINE, PT IS ON 02 VIA N/C. UP TO BSC THIS EVENING WITH ASSIST.
--- NOTE | 2021-01-23 15:32 | NUR ---
Pt is resting quietly today. Family is not present in the room at this time. He is using 18 units of 02 via n/c. He is no longer wearing the bipap, and he deies SOB at this time. He is eating partial meals and drinking. He is talkabtive today, so I provided therapeutic listening, and he talked about his brother and sister, and how much he appreciates them. He then became winded. We ended the visit for today.
--- NOTE | 2021-01-23 18:43 | NUR ---
SHIFT SUMMARY GERRI WAS PLEASANT AND COOPERATIVE THIS SHIFT. DENIED PAIN. WILSON INTACT AND DRAINING. FAMILY IN ROOM MOST OF THE DAY. EATING MEALS SITTING UP IN BED. PT/OT ORDERED PER DR LESTER, STILL AWAITING THEM. RED BUT BLANCHING ON BOTTOM, EXPLAINED THAT TURNING HELPS HIS SKIN, TURNED HIM WHEN HE WANTED. CALL LIGHT IN REACH, [facility]
--- NOTE | 2021-01-23 20:15 | NUR ---
COMFORT CARE A/O, ABLE TO MAKE NEEDS KNOWN. REPOSITIONED; WITH PATIENT ASSIST. NO ACUTE NEEDS AT THIS TIME. CONTINUE WITH CURRENT PLAN OF CARE
--- NOTE | 2021-01-23 22:15 | NUR ---
COMFORT CARE APPEARS TO BE RESTING. NO ACUTE NEEDS AT THIS TIME. BED IN LOWEST POSITION. CALL LIGHT WITHIN REACH. CONTINUE WITH CURRENT PLAN OF CARE.
--- NOTE | 2021-01-24 00:15 | NUR ---
COMFORT CARE APPEARS TO BE RESTING WITHOUT ANY NEEDS AT THIS TIME. BED IN LOWEST POSITION. CALL LIGTH AND BELONGINGS WITHIN REACH. CONTINUE WITH CURRENT PLAN OF CARE.
--- NOTE | 2021-01-24 02:15 | NUR ---
COMFORT CARE APPEARS TO BE RESTING. NO ACUTE NEEDS AT THIS TIME. BED REMAINS IN LOWEST POSITION; ALARM ON. CALL LIGHT AND BELONGINGS WITHIN REACH. CONTINUE WITH CURRENT PLAN OF CARE
--- NOTE | 2021-01-24 04:15 | NUR ---
COMFORT CARE APPEARS TO BE RESTING. NO ACUTE NEEDS AT THIS TIME. FREELY MOVES IN BED. BED IN LOWEST POSTIION; ALARM ON. CALL LIGHT AND BELONGINGS WITHIN REACH. CONTINUE WITH CURRENT PLAN OF CARE.
--- NOTE | 2021-01-24 05:00 | NUR ---
SHIFT SUMMARY ALERT, ABLE TO MAKE NEEDS KNOWN. COOPERATIVE WITH CARE. ANSWERS QUESTIONS APPROPRIATELY. NO C/O PAIN/DISCOMFORT. APPEARED TO REST MUCH OF THE NIGHT. WILSON SECURED AND DRAINING TO GRAVITY. AWAITING PT/OT EVALUATION TO DETERMINE DISCHARGE OPTIONS. BED REMAINS IN LOWEST POSITION; ALARM ON. CALL LIGHT AND BELONGINGS WITHIN REACH. CONTINUE WITH CURRENT PLAN OF CARE. REPORT TO ONCOMING RN.
--- NOTE | 2021-01-24 06:15 | NUR ---
COMFORT CARE APPEARS TO BE IN GOOD SPIRITS THIS AM. NO ACUTE CHANGES NOTED OVERNIGHT. NO C/O PAIN/DISCOMFORT. WILSON SECURED AND DRAINING TO GRAVITY. FREELY MOVES SELF IN BED. BED IN LOWEST POSITION; ALARM ON. CALL LIGHT AND BELONGINGS WITHIN [facility]. CONTINUE WITH CURRENT PLAN OF CARE.
--- NOTE | 2021-01-24 16:25 | NUR ---
Spoke to pt's sister Natividad in [place] today. She has been talking to her brother and sister that have been visiting pt daily. They have reported to Natividad that pt is improving quite a bit. Natividad is thinking again about ways to transport pt to [place] to live with her and Karma the other sister. Manager [employer] not available at this time of the day. Per Moira RN, pt is currently up ambulating to the bathrom and back to bed with assistance. She states pt is only currently on 4L of 02 via nasal cnanula and this is enough oxygen for him. She also states that he is also putting his nasal cannula in his mouth often, or taking it off altogeter. Nursing staff remind him to wear his 02 as he can desat all the way into the 50'without oxygen. Plan to follow up as neded.
--- NOTE | 2021-01-24 18:54 | NUR ---
PT REMAINS ON COMFORT CARE, FAMILY HAS BEEN AT THE BEDSIDE OFF AND ON TODAY. PT ANSWERS QUESTIONS APPROPRIATELY, UP TO CHAIR FOR MEALS TODAY, SBA WITH WALKER TO BR AND BACK. NO ACUTE CHANGES NOTED THIS SHIFT, WILL CONTINUE TO MONITOR AND REPORT TO ONCOMING RN
--- NOTE | 2021-01-25 05:06 | NUR ---
SHIFT SUMMARY COMFORT CARE. NO ACUTE CHANGES. PERIODS OF CONFUSION/FORGETFULNESS WHEN PT REMOVES O2, OTHERWISE AO & JOKES AROUND c STAFF. PLEASENT & COOPERATIVE. DENIES ANY PAIN, DISCOMFORT, N/V OR DYSPNEA. SLEPT WELL T/O NIGHT. HAD LRG BM. WILSON PATENT & DRAINING CLEAR YELLOW URINE. PLAN TO DC c HOSPICE. CALL LIGHT IN REACH & PT ABLE TO MAKE NEEDS KNOWN. WCTM.
--- NOTE | 2021-01-25 18:04 | NUR ---
NO DISTRESS. PT ALERT AND ORIENTED AND INDEPENDENT IN ROOM. UP TO RESTROOM. CALL LIGHT WITHIN REACH.
--- NOTE | 2021-01-25 18:12 | NUR ---
review of plan of care with family and caregiver assisted living. Review ith siste the risks and obsticals of care and transport to [place]. Pt may not tolerate airflight and weaing a mask. It the get to airport and he gets aggitated they will not lwgt him on plane. Will contact [employer] and see what their policies are. Suggested they look at [employer]. or vehicle transport. Suggest he stay on hospice he has rallied before and then declined. He woudl have to start over and get a primary care physician. Where he praveena be able to tranfer to another state easier with hospice care. suggest the speak with and national company such as [employer]. Will follow up.
--- NOTE | 2021-01-26 07:44 | NUR ---
TEMPLATE CHECKER SUMMARY Abran slept well overnight. No complaints of pain or restlessness. He is hoping to go home with hospice soon.
--- NOTE | 2021-01-26 09:06 | NUR ---
pt sleeping awakens easily, up with minimal assist to the bathroom, denies pain o2 on @ 4.5 l/min
--- NOTE | 2021-01-26 17:16 | NUR ---
PT IS A/OX3, PLEASANT AND COOPERATIVE A LITTLE SLOW TO RESPOND POSSIBLY DUE TO K[place]AL[place], THE PT IS UP WITH MINIMAL TO NO ASSIST TO THE BATHROOM, THE PT DENIED ANY PAIN, OR N/V, THE PT IS ON O2 AT 4L/MIN, PT HAD FAMILY IN TO VISIT WITH HIM TODAY, CALL LIGHT IN REACH, WILL CONTINUE TO MONITOR AND ASSESS FOR CHANGES
--- NOTE | 2021-01-26 17:21 | NUR ---
PT IS UP IND IN HIS ROOM DENIES PAIN FAMILY IS AT THE BEDSIDE
--- NOTE | 2021-01-26 17:21 | NUR ---
PT IS UP WITH MINIMAL ASSIST WEARS O2 VIA MOUTH AT TIMES TAKES THE O2 OF AT TIMES WHILE AMBULATING TO THE BATHROOM
--- NOTE | 2021-01-26 17:23 | NUR ---
PT WAS UP INTO THE SHOWER EARLIER, BED LINENS CHANGED TP REPORTED FEELING BETTER AFTER THE SHOWER
--- NOTE | 2021-01-26 17:31 | NUR ---
Spoke with pt's sister Maria E today for follow up. Case management is following up with [employer] to see if it's possible for the pt to travel to [place] with 02 tanks, with planned refill stops or something similar to that. Natividad does understand today it is not an option for pt to fly to her home in [place].
--- NOTE | 2021-01-27 03:13 | NUR ---
Patient started shift on tele with Sinus Devonte in 50's. After multiple brief episodes in the 30's in the morning, this RN called the evening hospitalist regarding parameters for his metoprolol. It was decided that this med would be held tonight to avoid the drops in heartrate overnight. Heartrate overnight has dropped into the low 40's and sustained. Call placed to night hospitalist. Awaiting return call. VSS and patient awake, alert and not symptomatic.
--- NOTE | 2021-01-27 11:23 | NUR ---
PT IS AWAKE ALERT SITTING ON THE SIDE OF THE BED, O2 IN HIS MOUTH HE PREFERS, REPORTS RIGHT KNEE FEELING BETTER THIS AM COMPARED TO YESTERDAY
--- NOTE | 2021-01-27 11:24 | NUR ---
PT AWAKE ALERT, O2 ON AND OFF, PT SOB WITH ACTIVITY, OTHERWISE HAS NO COMPLAINTS
--- NOTE | 2021-01-27 11:27 | NUR ---
PT IS AWAKE FAMILY ARRIVED TO THE BEDSIDE
[2021-01-27] MEDS ORDERED: ACET325 PO (17:47)
[2021-01-27] MEDS ORDERED: ATROPINE SULFATE2 M5 SL (17:49)
[2021-01-27] MEDS ORDERED: PROM25 PO (17:50)
[2021-01-27] MEDS ORDERED: TRANSDERM-SCOP1 EAC4 TD (17:50)
--- NOTE | 2021-01-27 18:07 | NUR ---
Pt continues to appear to rest comfortably in his room. His family have not made any final decisions or arrangements at this time. They continue to hope to take him to [place] where his sisters Apryl and Natividad. Pt states he wants to move too. He is wearing 4L 02 intermittently, and going without it at all at times. No updates to care plan at this time.
--- NOTE | 2021-01-27 18:43 | NUR ---
PT RESTING COMFORTABLE IN BED AT THIS TIME
--- NOTE | 2021-01-27 18:45 | NUR ---
PT AWAKE O2 INHIS MOUTH NO NEEDS AT THIS TIME
--- NOTE | 2021-01-27 18:46 | NUR ---
PT DISCHARGED WITH FAMILY TO MEET HOSPICE AT THEIR HOTEL ROOM, OXYGEN WAS DELIVERED AND SENT WITH THE PT AND HIS FAMILY, PT WAS TRANSFERD VIA WHEELCHAIR A/OX3, VERBALIZED UNDERSTANDING OF THE DC INSTRUCTIONS, PRESCRIPTIONS FAXED TO [facility] REQUESTED
== END 2021-01-27 18:11 | disposition hospice, home (50) | DRG 871 ==
LOC: ER 22:42 → ICUW 01-12 00:53 → MEDS 01-17 14:45
PROVIDERS: Emergency Medicine; Internal Medicine; Pharmacist; ADMIT Internal Medicine
PROC: 5A09357 Assistance with Respiratory Ventilation, Less than 24 Consecutive Hours, Continuous Positive Airway Pressure (ICD-10-PCS; principal; 2021-01-12)
DX: A41.02 Sepsis due to Methicillin resistant Staphylococcus aureus (principal); J18.9 Pneumonia, unspecified organism; I50.21 Acute systolic (congestive) heart failure; J96.01 Acute respiratory failure with hypoxia; J96.02 Acute respiratory failure with hypercapnia; J15.212 Pneumonia due to Methicillin resistant Staphylococcus aureus; J44.1 Chronic obstructive pulmonary disease with (acute) exacerbation; J44.0 Chronic obstructive pulmonary disease with (acute) lower respiratory infection; N17.9 Acute kidney failure, unspecified; E11.22 Type 2 diabetes mellitus with diabetic chronic kidney disease; N18.30 Chronic kidney disease, stage 3 unspecified; I25.10 Atherosclerotic heart disease of native coronary artery without angina pectoris; Z51.5 Encounter for palliative care; E11.40 Type 2 diabetes mellitus with diabetic neuropathy, unspecified; E78.5 Hyperlipidemia, unspecified; I25.2 Old myocardial infarction; Z86.73 Personal history of transient ischemic attack (TIA), and cerebral infarction without residual deficits; Z79.899 Other long term (current) drug therapy
CPT/HCPCS: 36415; 36600; 51702; 71045; 71260; 80048; 80053; 80202; 81001; 82550; 82803; 82947; 83880; 84132; 84484; 85025; 85027; 87070; 87077; 87106; 87186; 87205; 93005; 93010; 93880; 94640; 94644; 94660; 94762; 96365; 96367; 96375; 97110; 97112; 97116; 97162; 97165; 97530; 97535; 99285-25; A9270; C8929; J0692; J1630; J1644; J1650; J1815; J1940; J1953; J1956; J2060; J2270; J2405; J2930; J3370; J7050; P9046; Q2038; Q9957; Q9967